=== PATIENT | male | born 1975 | race Caucasian/White ===

== ENCOUNTER 2016-07-27 | Outpatient (CLI) | payer OTHER | END 2016-07-27 19:56 | disposition short-term general hospital (02) | DX: R29.90 Unspecified symptoms and signs involving the nervous system (principal) | CPT/HCPCS: A0170; A0425; A0428 ==

== ENCOUNTER 2016-07-27 | Outpatient (CLI) | payer OTHER | END 2016-07-27 10:04 | disposition critical access hospital (66) | CPT/HCPCS: A0425; A0429 ==

== ENCOUNTER 2016-07-27 10:22 | Emergency (ER) | payer OTHER ==
[2016-07-27] MEDS ORDERED: LORazepam 2 MG/ML SYRINGE IVP STA (14:43)
[2016-07-27] MEDS ORDERED: LORazepam 2 MG/ML SYRINGE ONE (14:46)
[2016-07-27] MEDS ORDERED: levETIRAcetam INJ 1,000 MG in SODIUM CHLORIDE 0.9% 100ML 100 ML IV STA (15:12)
== END 2016-07-27 20:06 | disposition short-term general hospital (02) ==
DX: R41.82 Altered mental status, unspecified (principal)
CPT/HCPCS: 36415; 70450; 70551; 80053; 80306; 80307; 80329; 81003; 82140; 83690; 85025; 93005; 93010; 96374; 96375; 99284; 99285; J2060

== ENCOUNTER 2016-08-18 21:11 | Emergency (ER) | payer OTHER ==
[2016-08-18] MEDS ORDERED: METOCLOPRAMIDE 10 MG/2 ML VIAL IVP STA (21:24)
[2016-08-18] MEDS ORDERED: diphenhydrAMINE INJ 50 MG/ML VIAL IVP STA (21:24)
[2016-08-18] MEDS ORDERED: KETOROLAC 60 MG/2 ML VIAL IVP STA (21:24)
[2016-08-18] MEDS ORDERED: SODIUM CHLORIDE 0.9% 1,000 ML IV ONE ×2 (21:24→21:27)
[2016-08-18] MEDS ORDERED: diphenhydrAMINE INJ 50 MG/ML VIAL ONE (21:26)
[2016-08-18] MEDS ORDERED: KETOROLAC 30 MG/ML VIAL ONE (21:26)
[2016-08-18] MEDS ORDERED: METOCLOPRAMIDE 10 MG/2 ML VIAL IVP ONE (21:27)
== END 2016-08-18 22:23 | disposition home or self-care (01) ==
DX: R51 Headache (principal); G40.89 Other seizures; I10 Essential (primary) hypertension

== ENCOUNTER 2016-08-24 16:01 | Emergency (ER) | payer OTHER ==
[2016-08-24] MEDS ORDERED: LORazepam 2 MG/ML SYRINGE ONE (16:09)
[2016-08-24] MEDS ORDERED: LORazepam 2 MG/ML SYRINGE IVP STA (16:20)
[2016-08-24] MEDS ORDERED: PROCHLORPERAZINE 10 MG/2 ML VIAL IVP STA (16:20)
[2016-08-24] MEDS ORDERED: KETOROLAC 30 MG/ML VIAL IVP STA (16:20)
[2016-08-24] MEDS ORDERED: diphenhydrAMINE INJ 50 MG/ML VIAL IVP STA (16:20)
[2016-08-24] MEDS ORDERED: SODIUM CHLORIDE 0.9% 1,000 ML IV ONE (16:20)
[2016-08-24] MEDS ORDERED: diphenhydrAMINE INJ 50 MG/ML VIAL ONE (16:32)
[2016-08-24] MEDS ORDERED: KETOROLAC 30 MG/ML VIAL ONE (16:33)
[2016-08-24] MEDS ORDERED: PROCHLORPERAZINE 10 MG/2 ML VIAL ONE (16:33)
== END 2016-08-24 18:15 | disposition home or self-care (01) ==
DX: R56.9 Unspecified convulsions (principal); G43.001 Migraine without aura, not intractable, with status migrainosus; I10 Essential (primary) hypertension; G47.30 Sleep apnea, unspecified
CPT/HCPCS: 36415; 80053; 80320; 83690; 85025; 93005; 93010; 96374; 96375; 99284; J2060

== ENCOUNTER 2016-12-05 23:08 | Emergency (ER) | payer OTHER ==
[2016-12-05 23:29] LABS: BILIRUBIN,URINE NEGATIVE (NEGATIVE); PH,URINE 5.5 PH (5.0-7.5)
[2016-12-05 23:31] LABS: UA CHARGE (STRIP ONLY) YES; UR CULTURE IF IND NOT INDICATED
[2016-12-05 23:46] LABS: BASOPHILS # (AUTO) 0.1 10^3/uL (0.0-0.1); BASOPHILS % (AUTO) 1.1 %; EOSINOPHILS # (AUTO) 0.2 10^3/uL (0.0-0.7); EOSINOPHILS % (AUTO) 2.2 %; HCT - HEMATOCRIT 41.3 % (42.0-52.0); HGB - HEMOGLOBIN 14.3 g/dL (14.0-18.0); LYMPHOCYTES # (AUTO) 3.9 10^3/uL (1.5-3.5); LYMPHOCYTES % (AUTO) 55.6 %; MEAN CORPUSCULAR HGB CONC 34.5 g/dL (32.0-36.0); MEAN CORPUSCULAR VOLUME 83.8 fL (80.0-94.0); MEAN PLATELET VOLUME 8.6 fL (7.4-11.4); MONOCYTES # (AUTO) 0.6 10^3/uL (0.0-1.0); MONOCYTES % (AUTO) 8.9 %; NEUTROPHILS # (AUTO) 2.2 10^3/uL (1.5-6.6); NEUTROPHILS % (AUTO) 32.2 %; NUCLEATED RED BLOOD CELLS AUTO 0.2 /100WBC; RED BLOOD COUNT 4.93 10^6/uL (4.70-6.10); RED CELL DISTRIBUTION WIDTH 16.5 % (12.0-15.0); UNCORRECTED WHITE BLOOD COUNT 6.9 x10^3/uL; WHITE BLOOD COUNT 6.9 x10^3/uL (4.8-10.8)
[2016-12-06 00:02] LABS: ALBUMIN/GLOBULIN RATIO 1.6 (1.0-2.2); BILIRUBIN,TOTAL 0.4 mg/dL (0.2-1.0); BUN - BLOOD UREA NITROGEN 21 mg/dL (6-20); CALCIUM 9.4 mg/dL (8.5-10.3); CARBON DIOXIDE - CO2 24 mmol/L (21-32); CHLORIDE 108 mmol/L (101-111); CREATININE 0.9 mg/dL (0.6-1.2); GFR - MDRD 93 (>89); GLUCOSE 118 mg/dL (70-100); LIPASE 26 U/L (22-51); POTASSIUM 4.2 mmol/L (3.5-5.0); SALICYLATE < 6.0 mg/dL; SODIUM 140 mmol/L (135-145); TOTAL PROTEIN 7.1 g/dL (6.7-8.2)
[2016-12-06 00:04] LABS: ACETAMINOPHEN < 10 ug/mL (10-30)
--- NOTE | 2016-12-06 03:25 | ED Physician Documentation ---
PD HPI MHE - Stated complaint Stated Complaint: SI - Chief complaint Chief Complaint: MHE - History obtained from History obtained from: Patient - History of Present Illness Primary symptom: Suicidal ideation Contributing factors: Other (Health issues, affecting work and family relationships.) Similar symptoms before: Diagnosis (Depression; Conversion reaction) - Additional information Additional information: The patient is a 41-year-old [employer] male who presents with vague suicidal ideation. 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 Today he was arguing with his and tried to get away. She blocked the door, and then he grabbed a bottle of pills. His took the pills away and called 911. [place]. He denies being actively suicidal, but states that every day it gets harder to think of a reason why he should go on living. He states he is seeking help before it comes to the point where he tries to take his own life. He denies any active plan at this time. He denies the use of alcohol or other drugs. 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 Review of Systems Constitutional: denies: Fever Ears: denies: Tinnitus/ringing Nose: denies: Congestion Throat: denies: Sore throat Cardiac: denies: Chest pain / pressure Respiratory: denies: Dyspnea, Cough GI: denies: Abdominal Pain, Nausea, Vomiting : denies: Dysuria Skin: denies: Rash Musculoskeletal: denies: Back pain Neurologic: denies: Headache PD PAST MEDICAL HISTORY - Past Medical History Past Medical History: Yes Cardiovascular: Hypertension Respiratory: Sleep apnea, CPAP use Neuro: Tremors Endocrine/Autoimmune: None : Kidney stones Psych: Depression Other Past Medical History: conversion disorder - Past Surgical History Past Surgical History: Yes General: Appendectomy HEENT: Tonsil/Adenoidectomy - Present Medications Home Medications: Ambulatory Orders Medication Instructions Recorded Confirmed Escitalopram Oxalate [Lexapro] 20 mg PO DAILY 11/12/15 12/05/16 Propranolol [Inderal] 10 mg PO BID 08/24/16 12/05/16 Sumatriptan [Imitrex] 25 mg PO BID PRN #10 tablet 08/24/16 12/05/16 Amitriptyline [Elavil] 25 mg ORAL DAILY 12/05/16 12/05/16 - Allergies Allergies/Adverse Reactions: Allergies Allergy/AdvReac Type Severity Reaction Status Date / Time No Known Drug Allergies Allergy Verified 07/27/16 10:24 - Social History Does the pt smoke?: No Smoking Status: Never smoker Does the pt drink ETOH?: No Does the pt have substance abuse?: No - Immunizations Immunizations are current?: Yes - POLST Patient has POLST: No PD ED PE NORMAL - Vitals Vital signs reviewed: Yes (Borderline hypertension initially.) - General General: Alert and oriented X 3, Well developed/nourished - HEENT HEENT: Atraumatic, EOMI, Pharynx benign - Neck Neck: Supple, no meningeal sign, No adenopathy, No JVD - Cardiac Cardiac: RRR, No murmur - Respiratory Respiratory: No respiratory distress, Clear bilaterally - Abdomen Abdomen: Soft, Non tender - Back Back: No CVA TTP - Derm Derm: No rash - Extremities Extremities: No edema, No calf tenderness / cord - Neuro Neuro: Alert and oriented X 3, No motor deficit, No sensory deficit, Normal speech PD ED PE EXPANDED - Psych Psych: Depressed. No: Suicidal, Anxious, Agitated, Delusions Results - Vitals Vitals: Vital Signs - 24 hr 12/06/16 12/06/16 03:51 10:33 Temperature 36.6 C Heart Rate 88 81 Respiratory 18 16 Rate Blood Pressure 130/98 H 139/86 H O2 Saturation 95 98 Oxygen O2 Source Room air - Labs Labs: Laboratory Tests 12/05/16 12/05/16 12/05/16 23:21 23:32 23:32 WBC 6.9 RBC 4.93 Hgb 14.3 Hct 41.3 L MCV 83.8 MCH 29.0 MCHC 34.5 RDW 16.5 H Plt Count 251 MPV 8.6 Neut # 2.2 Lymph # 3.9 H [place] # 0.6 Eos # 0.2 Baso # 0.1 Absolute Nucleated RBC 0.01 Nucleated RBCs 0.2 Sodium 140 Potassium 4.2 Chloride 108 Carbon Dioxide 24 Anion Gap 8.0 BUN 21 H Creatinine 0.9 Estimated GFR (MDRD) 93 Glucose 118 H Calcium 9.4 Total Bilirubin 0.4 AST 41 ALT 84 H Alkaline Phosphatase 85 Total Protein 7.1 Albumin 4.4 Globulin 2.7 Albumin/Globulin Ratio 1.6 Lipase 26 TSH Urine Color YELLOW Urine Clarity CLEAR Urine pH 5.5 Ur Specific [place] 1.025 Urine Protein NEGATIVE Urine Glucose (UA) NEGATIVE Urine Ketones NEGATIVE Urine Occult Blood NEGATIVE Urine Nitrite NEGATIVE Urine Bilirubin NEGATIVE Urine Urobilinogen 1 (NORMAL) Ur Leukocyte Esterase NEGATIVE Ur Microscopic Review NOT INDICATED Urine Culture Comments NOT INDICATED Salicylates < 6.0 Urine Opiates Screen NEGATIVE Ur Oxycodone Screen NEGATIVE Urine Methadone Screen NEGATIVE Ur Propoxyphene Screen NEGATIVE Acetaminophen < 10 L Ur Barbiturates Screen NEGATIVE Ur Tricyclics Screen NEGATIVE Ur Phencyclidine Scrn NEGATIVE Ur Amphetamine Screen NEGATIVE U Methamphetamines Scrn NEGATIVE U Benzodiazepines Scrn NEGATIVE Urine Cocaine Screen NEGATIVE U Cannabinoids Screen NEGATIVE Ethyl Alcohol < 5.0 12/05/16 23:32 WBC RBC Hgb Hct MCV MCH MCHC RDW Plt Count MPV Neut # Lymph # [place] # Eos # Baso # Absolute Nucleated RBC Nucleated RBCs Sodium Potassium Chloride Carbon Dioxide Anion Gap BUN Creatinine Estimated GFR (MDRD) Glucose Calcium Total Bilirubin AST ALT Alkaline Phosphatase Total Protein Albumin Globulin Albumin/Globulin Ratio Lipase TSH 1.25 Urine Color Urine Clarity Urine pH Ur Specific [place] Urine Protein Urine Glucose (UA) Urine Ketones Urine Occult Blood Urine Nitrite Urine Bilirubin Urine Urobilinogen Ur Leukocyte Esterase Ur Microscopic Review Urine Culture Comments Salicylates Urine Opiates Screen Ur Oxycodone Screen Urine Methadone Screen Ur Propoxyphene Screen Acetaminophen Ur Barbiturates Screen Ur Tricyclics Screen Ur Phencyclidine Scrn Ur Amphetamine Screen U Methamphetamines Scrn U Benzodiazepines Scrn Urine Cocaine Screen U Cannabinoids Screen Ethyl Alcohol PD MEDICAL DECISION MAKING - ED course Complexity details: reviewed old records, reviewed results, re-evaluated patient , considered differential, d/w patient, d/w family ED course: The patient's presentation is significant for depression with vague thoughts of suicide, without specific plan. He reports significant stressors involving inability to work at his job and troubled relations with his as a result of medical/psychiatric illness. CBC, chemistry panel, and urinalysis are all unremarkable. Tox screen is negative. crisis worker is not available for consult at night, and the patient does not meet criteria for involuntary psychiatric hold, so does not [facility] He will stay in the emergency department through the night until medical director occupational health is available in the morning. At change of shift I signed his care out to Dr. Dowling, pending evaluation by the medical director occupational health. Departure - Departure Disposition: 65 Psych Hosp/Unit DC/Xfer Clinical Impression: Suicidal ideation Depression Qualifiers: Depression Type: unspecified Qualified Code(s): F32.9 - Major depressive disorder, single episode, unspecified Discharge Date/Time: 12/06/16 10:48
[2016-12-06 10:34] VITALS: BP 139/86
== END 2016-12-06 10:48 ==
LOC: ED 23:08
DX: F32.9 Major depressive disorder, single episode, unspecified (principal); R45.851 Suicidal ideations; I10 Essential (primary) hypertension; G47.30 Sleep apnea, unspecified
CPT/HCPCS: 36415; 80053; 80306; 80307; 80320; 80329; 81001; 81003; 83690; 84443; 85025; 87086; 99283; 99284

== ENCOUNTER 2017-01-01 21:26 | Emergency (ER) | payer OTHER ==
[2017-01-01 21:42] LABS: BILIRUBIN,URINE NEGATIVE (NEGATIVE)
[2017-01-01 21:45] LABS: UA w/ MICROSCOPIC CHARGE YES
[2017-01-01 21:50] LABS: UR CULTURE IF IND NOT INDICATED; WBC,URINE 0-3 /HPF (0-3)
--- NOTE | 2017-01-01 21:54 | ED Physician Documentation ---
PD HPI ABD PAIN - Stated complaint Stated Complaint: ABD PAIN - Chief complaint Chief Complaint: Abd Pain - History obtained from History obtained from: Patient - History of Present Illness Timing - onset: How many weeks ago (3) Timing - duration: Weeks Timing - details: Abrupt onset, Intermittant Pain level max: 10 Pain level now: 10 Quality: Pain Location: Other (right testicle) Radiation: Right flank Improved by: Other (no ameliorating factors) Worsened by: Other (no exacerbating factors) Associated symptoms: Testicular pain. No: Fever, Nausea, Vomiting, Dysuria, Hematuria Similar symptoms before: Has not had sx before Recently seen: Not recently seen - Additional information Additional information: c/o right testicular pain, which he has had in the past in association with kidney stones. He has had this pain episodically x 3 weeks, recently seen by PMD (OLIVER), told he might have epididimytis, prescribed a topical medication. Review of Systems Constitutional: denies: Fever GI: denies: Abdominal Pain, Nausea, Vomiting : reports: Testicular pain. denies: Dysuria, Frequency, Hematuria Musculoskeletal: reports: Back pain PD PAST MEDICAL HISTORY - Past Medical History Past Medical History: Yes Cardiovascular: Hypertension Respiratory: Sleep apnea, CPAP use Neuro: Tremors Endocrine/Autoimmune: None : Kidney stones Psych: Depression, Other Other Past Medical History: conversion disorder - Past Surgical History Past Surgical History: Yes General: Appendectomy HEENT: Tonsil/Adenoidectomy - Present Medications Home Medications: Ambulatory Orders Medication Instructions Recorded Confirmed Escitalopram Oxalate [Lexapro] 20 mg PO DAILY 11/12/15 12/05/16 Propranolol [Inderal] 10 mg PO BID 08/24/16 12/05/16 Sumatriptan [Imitrex] 25 mg PO BID PRN #10 tablet 08/24/16 12/05/16 Amitriptyline [Elavil] 25 mg ORAL DAILY 12/05/16 12/05/16 Tamsulosin [Flomax] 0.4 mg PO DAILY #7 capsule 01/01/17 oxyCODONE/ACET 5/325 [Percocet 5 1 - 2 each PO Q6H PRN #14 tablet 01/01/17 mg/325 mg] - Allergies Allergies/Adverse Reactions: Allergies Allergy/AdvReac Type Severity Reaction Status Date / Time No Known Drug Allergies Allergy Verified 07/27/16 10:24 - Social History Does the pt smoke?: No Smoking Status: Never smoker Does the pt drink ETOH?: No Does the pt have substance abuse?: No - Immunizations Immunizations are current?: Yes - POLST Patient has POLST: No PD ED PE NORMAL - Vitals Vital signs reviewed: Yes - General General: Alert and oriented X 3, No acute distress, Well developed/nourished - Cardiac Cardiac: RRR, No murmur - Respiratory Respiratory: No respiratory distress, Clear bilaterally - Abdomen Abdomen: Normal bowel sounds, Soft, Non tender, Non distended - Back Back: No CVA TTP - Derm Derm: Normal color, Warm and dry, No rash PD ED PE EXPANDED - Male Male : Normal Exam, Circumcised, Testes descended delaney, Normal lie/ cremastaric. No: Discharge, Tenderness Results - Vitals Vitals: Vital Signs - 24 hr 01/01/17 01/01/17 21:28 23:29 Temperature 36.7 C Heart Rate 75 65 Respiratory 18 16 Rate Blood Pressure 129/82 H 133/80 H O2 Saturation 98 100 Oxygen O2 Source Room air - Labs Labs: Laboratory Tests 01/01/17 01/01/17 01/01/17 21:35 21:53 21:53 WBC 6.6 RBC 4.63 L Hgb 13.0 L Hct 39.1 L MCV 84.4 MCH 28.1 MCHC 33.3 RDW 15.3 H Plt Count 234 MPV 9.1 Neut # 2.8 Lymph # 2.9 [place] # 0.7 Eos # 0.2 Baso # 0.0 Absolute Nucleated RBC 0.01 Nucleated RBCs 0.1 Sodium 140 Potassium 3.6 Chloride 108 Carbon Dioxide 25 Anion Gap 7.0 BUN 20 Creatinine 0.9 Estimated GFR (MDRD) 93 Glucose 119 H Calcium 9.1 Urine Color YELLOW Urine Clarity CLEAR Urine pH 6.0 Ur Specific [place] >=1.030 H Urine Protein NEGATIVE Urine Glucose (UA) NEGATIVE Urine Ketones TRACE Urine Occult Blood MODERATE H Urine Nitrite NEGATIVE Urine Bilirubin NEGATIVE Urine Urobilinogen 0.2 (NORMAL) Ur Leukocyte Esterase NEGATIVE Urine RBC 11-25 H Urine WBC 0-3 Ur Squamous Epith Cells NONE SEEN Urine Bacteria None Seen Urine Mucus Moderate Strands Ur Microscopic Review INDICATED Urine Culture Comments NOT INDICATED - Rads (name of study) CT A/P Radiology: Prelim report reviewed, See rad report PD MEDICAL DECISION MAKING - ED course Complexity details: reviewed old records, reviewed results, re-evaluated patient , considered differential, d/w patient Departure - Departure Disposition: 01 Home, Self Care Clinical Impression: Renal colic Condition: Good Instructions: ED Stone Renal W Colic Follow-Up: Mamadou Corral DO [Primary Care Provider] - Prescriptions: Tamsulosin [Flomax] 0.4 mg PO DAILY #7 capsule oxyCODONE/ACET 5/325 [Percocet 5 mg/325 mg] 1 - 2 each PO Q6H PRN #14 tablet PRN Reason: Pain Discharge Date/Time: 01/01/17 23:35
[2017-01-01] MEDS ORDERED: SODIUM CHLORIDE 0.9% 500 ML IV STA (22:11)
[2017-01-01] MEDS ORDERED: KETOROLAC 60 MG/2 ML VIAL IVP STA (22:11)
[2017-01-01] MEDS ORDERED: KETOROLAC 30 MG/ML VIAL ONE (22:14)
[2017-01-01 22:18] LABS: BASOPHILS % (AUTO) 0.8 %; EOSINOPHILS # (AUTO) 0.2 10^3/uL (0.0-0.7); EOSINOPHILS % (AUTO) 2.5 %; HCT - HEMATOCRIT 39.1 % (42.0-52.0); LYMPHOCYTES # (AUTO) 2.9 10^3/uL (1.5-3.5); LYMPHOCYTES % (AUTO) 43.4 %; MEAN CORPUSCULAR HEMOGLOBIN 28.1 pg (27.0-31.0); MEAN CORPUSCULAR HGB CONC 33.3 g/dL (32.0-36.0); MEAN CORPUSCULAR VOLUME 84.4 fL (80.0-94.0); MEAN PLATELET VOLUME 9.1 fL (7.4-11.4); MONOCYTES # (AUTO) 0.7 10^3/uL (0.0-1.0); MONOCYTES % (AUTO) 10.6 %; NEUTROPHILS # (AUTO) 2.8 10^3/uL (1.5-6.6); NEUTROPHILS % (AUTO) 42.7 %; NUCLEATED RED BLOOD CELLS AUTO 0.1 /100WBC; RED BLOOD COUNT 4.63 10^6/uL (4.70-6.10); RED CELL DISTRIBUTION WIDTH 15.3 % (12.0-15.0); UNCORRECTED WHITE BLOOD COUNT 6.6 x10^3/uL; WHITE BLOOD COUNT 6.6 x10^3/uL (4.8-10.8)
[2017-01-01 22:24] LABS: CALCIUM 9.1 mg/dL (8.5-10.3); CREATININE 0.9 mg/dL (0.6-1.2); POTASSIUM 3.6 mmol/L (3.5-5.0)
--- NOTE | 2017-01-01 22:48 | CT Preliminary Report ---
Exam: CT Abdomen/Pelvis W/O IMPRESSION: 1. There is mild right hydronephrosis and right hydroureter with mild adjacent stranding. This is roxy ng caused by a right ureterovesicular junction calculus measuring 5 x 4 mm. 2. A few small bilateral nonobstructing renal calculi. 3. Chronic bilateral L5 pars defects with minimal anterolisthesis of L5-S1, appears unchanged. [facility] SITE ID: [id number]
--- NOTE | 2017-01-01 22:51 | CT Report ---
EXAM: CT ABDOMEN AND PELVIS (CT KUB) EXAM DATE: 01/01/2017 10:27 PM. CLINICAL HISTORY: Right flank, testicle pain. COMPARISONS: CT abdomen pelvis 09/30/2015. TECHNIQUE: Routine axial helical CT imaging was performed through the abdomen and pelvis without IV c ontrast. Reconstructions: Coronal and sagittal. In accordance with CT protocol optimization, one or more of the following dose reduction techniques w ere utilized for this exam: automated exposure control, adjustment of mA and/or KV based on patient s ize, or use of iterative reconstructive technique. FINDINGS: Lung Bases: Unremarkable. Solid Organs: Mild fatty liver. Contracted gallbladder. No bile duct dilatation. The pancreas, splee n and adrenals appear unremarkable. Kidneys: Right lower pole renal calculus measures 3 mm and this was present on the prior. There is mi ld right hydronephrosis and right hydroureter with mild adjacent stranding. This is being caused by a right ureterovesicular junction calculus measuring 5 x 4 mm. A few 2-3 mm calculi seen in the left kidney. No left hydronephrosis. Peritoneal Cavity: Surgical clips in the right lower quadrant could be status post appendectomy. No a cute bowel findings are seen. No free fluid or free air. There is a large amount of fluid and debris in the stomach. Pelvic Organs: See above. The bladder is decompressed. Noncontrast images of the visualized pelvic or genaro are unremarkable. Vasculature: Unremarkable. Other: Chronic bilateral L5 pars defects with minimal anterolisthesis of L5-S1, appears unchanged. IMPRESSION: 1. There is mild right hydronephrosis and right hydroureter with mild adjacent stranding. This is roxy ng caused by a right ureterovesicular junction calculus measuring 5 x 4 mm. 2. A few small bilateral nonobstructing renal calculi. 3. Chronic bilateral L5 pars defects with minimal anterolisthesis of L5-S1, appears unchanged. [facility] Referring Provider Line: [phone] SITE ID: [id number]
[2017-01-01] MEDS ORDERED: TAMSULOSIN 0.4 MG CAPSULE PO STA (23:18)
[2017-01-01] MEDS ORDERED: oxyCODONE/ACET 5/325 Prepack 4 PO STA (23:18)
[2017-01-01] MEDS ORDERED: oxyCODONE/ACET 5/325 Prepack 4 PO ONE (23:26)
[2017-01-01] MEDS ORDERED: TAMSULOSIN 0.4 MG CAPSULE ONE (23:26)
[2017-01-01 23:30] VITALS: BP 133/80
== END 2017-01-01 23:35 | disposition home or self-care (01) ==
LOC: ED 21:26
DX: N13.2 Hydronephrosis with renal and ureteral calculous obstruction (principal); I10 Essential (primary) hypertension
CPT/HCPCS: 36415; 74176; 80048; 81001; 85025; 96374; 99283; 99284; A9270; 81003; 87086

== ENCOUNTER 2017-05-30 13:58 | Emergency (ER) | payer OTHER ==
--- NOTE | 2017-05-30 16:19 | ED Physician Documentation ---
PD HPI FOCAL NEURO - Stated complaint Stated Complaint: BILAT HAND NUMBNESS - Chief complaint Chief Complaint: General - History obtained from History obtained from: Patient - History of Present Illness Timing - onset: Other (He recently had a broken carpal in the left hand that was managed conservatively with casting. The cast came off a few weeks ago. Starting about that time he had migratory pains especially to the medial elbow and up into the axilla. The axillary pain is gone but today had numbness of the fingertips, he says it is worse on the thumb side but points to the pinky side as the site of it.) Review of Systems Constitutional: denies: Fever, Chills, Myalgias Musculoskeletal: denies: Neck pain, Back pain Neurologic: reports: Generalized weakness Psychiatric: reports: Reviewed and negative PD PAST MEDICAL HISTORY - Past Medical History Past Medical History: Yes Cardiovascular: Hypertension Respiratory: Sleep apnea, CPAP use Neuro: Tremors Endocrine/Autoimmune: None : Kidney stones Psych: Depression, Anxiety, Other - Past Surgical History Past Surgical History: Yes General: Appendectomy HEENT: Tonsil/Adenoidectomy - Present Medications Home Medications: Ambulatory Orders Medication Instructions Recorded Confirmed Atenolol 50 mg PO DAILY 05/30/17 05/30/17 Duloxetine HCl [Cymbalta] 60 mg BID 05/30/17 05/30/17 Pantoprazole [Protonix] 60 mg PO DAILY 05/30/17 05/30/17 traZODone [Desyrel] 50 mg QPM 05/30/17 05/30/17 - Allergies Allergies/Adverse Reactions: Allergies Allergy/AdvReac Type Severity Reaction Status Date / Time No Known Drug Allergies Allergy Verified 05/30/17 14:12 - Social History Does the pt smoke?: No Smoking Status: Never smoker Does the pt drink ETOH?: No Does the pt have substance abuse?: No - Immunizations Immunizations are current?: Yes - POLST Patient has POLST: No PD ED PE NORMAL - Vitals Vital signs reviewed: Yes - General General: Alert and oriented X 3, No acute distress - Extremities Extremities: Other (No tenderness of the elbow, axilla, or wrist. 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 He has good radial pulses. He has symmetric sensation throughout the hand and a negative Tinel's and Phalen sign.) - Neuro Neuro: Alert and oriented X 3, Normal speech - Psych Psych: Normal mood, Normal affect Results - Vitals Vitals: Vital Signs - 24 hr 05/30/17 14:07 Temperature 36 C L Heart Rate 71 Respiratory 18 Rate Blood Pressure 140/91 H O2 Saturation 98 Oxygen O2 Source Room air PD MEDICAL DECISION MAKING - ED course ED course: History and physical examination is not consistent with an emergency medical condition including CVA. This is most consistent with probably an ulnar nerve neuropathy from previous casting. Not c/w Carpal tunnel syndrome. Primary care follow-up was advised. Departure - Departure Disposition: 01 Home, Self Care Clinical Impression: Ulnar neuropathy at elbow of left upper extremity Condition: Good Record reviewed to determine appropriate education?: Yes Comments: This is most consistent with an ulnar nerve neuropathy probably from prior casting, but this can happen spontaneously as well. Follow-up with your doctor , if it does not resolve in the spine in a timely manner they may want to order further testing on you such as EMG/nerve conduction testing. Your blood pressure was elevated today on check into the emergency department. This does not mean that you have hypertension, it is a common phenomenon to come to the emergency department and have elevated blood pressure. I recommend that you see your primary care physician within the week to have it rechecked when you are feeling better.
[2017-05-30 16:44] VITALS: BP 130/82
== END 2017-05-30 16:38 | disposition home or self-care (01) ==
LOC: ED 13:58
DX: G56.22 Lesion of ulnar nerve, left upper limb (principal); I10 Essential (primary) hypertension
CPT/HCPCS: 99282; 99283

== ENCOUNTER 2017-09-28 16:33 | Emergency (ER) | payer OTHER ==
[2017-09-28] MEDS ORDERED: LORazepam 0.5 MG TABLET PO STA (18:22)
--- NOTE | 2017-09-28 18:24 | ED Physician Documentation ---
History of Present Illness - Stated complaint Stated Complaint: FAINTED - Chief complaint Chief Complaint: General - History obtained from History obtained from: Patient, Family () - History of Present Illness Timing: Today (42-year-old gentleman with history of anxiety, conversion disorder and pseudoseizures. He was at home tending to his goats, laying out the [place] he was rotating and started to feel like he was motion sick and got nauseous. This kind of set off what I think sounded like a panic attack where he started stuttering and had to sit on the ground and not move for about 15 minutes. At baseline he does not stutter, only when he is having anxiety and he is stuttering now this is similar to prior episodes of pseudoseizure.) Review of Systems Constitutional: denies: Fever, Chills Eyes: denies: Loss of vision, Decreased vision, Photophobia, Discharge, Irritation Ears: denies: Loss of hearing, Ear pain Nose: reports: Reviewed and negative Throat: reports: Reviewed and negative Cardiac: reports: Reviewed and negative PD PAST MEDICAL HISTORY - Past Medical History Cardiovascular: Hypertension Respiratory: Sleep apnea, CPAP use Neuro: Tremors Endocrine/Autoimmune: None : Kidney stones Psych: Depression, Anxiety, Other - Past Surgical History Past Surgical History: Yes General: Appendectomy HEENT: Tonsil/Adenoidectomy - Present Medications Home Medications: Ambulatory Orders Medication Instructions Recorded Confirmed Atenolol 50 mg PO DAILY 05/30/17 05/30/17 Duloxetine HCl [Cymbalta] 60 mg BID 05/30/17 05/30/17 Pantoprazole [Protonix] 60 mg PO DAILY 05/30/17 05/30/17 traZODone [Desyrel] 50 mg QPM 05/30/17 05/30/17 - Allergies Allergies/Adverse Reactions: Allergies Allergy/AdvReac Type Severity Reaction Status Date / Time No Known Drug Allergies Allergy Verified 09/28/17 16:58 - Social History Does the pt smoke?: No Smoking Status: Never smoker Does the pt drink ETOH?: No Does the pt have substance abuse?: No - Immunizations Immunizations are current?: Yes - POLST Patient has POLST: No PD ED PE NORMAL - Vitals Vital signs reviewed: Yes - General General: Alert and oriented X 3, Well developed/nourished, Other (Stuttering speech, poor eye contact) - HEENT HEENT: PERRL, EOMI, Pharynx benign - Neck Neck: Supple, no meningeal sign, No bony TTP - Cardiac Cardiac: RRR, No murmur - Respiratory Respiratory: No respiratory distress, Clear bilaterally - Neuro Neuro: Alert and oriented X 3, heel builder 2-12 intact Eye Opening: Spontaneous Motor: Obeys Commands Verbal: Oriented GCS Score: 15 Results - Vitals Vitals: Vital Signs - 24 hr 09/28/17 09/28/17 16:48 19:33 Temperature 37.1 C 36.0 C L Heart Rate 71 64 Respiratory 17 16 Rate Blood Pressure 118/85 H 120/81 H O2 Saturation 97 98 Oxygen O2 Source Room air - EKG (time done) 1643 Rate: Rate (enter#) (67) Rhythm: NSR [place]: Normal Intervals: Normal [place] QRS: Normal Ischemia: Normal ST segments Computer interpretation: Agree with computer - Labs Labs: Laboratory Tests 09/28/17 09/28/17 18:31 18:31 WBC 7.3 RBC 4.89 Hgb 13.1 L Hct 39.6 L MCV 81.0 MCH 26.7 L MCHC 33.0 RDW 14.9 Plt Count 261 MPV 7.8 Neut # 4.3 Lymph # 2.3 [place] # 0.5 Eos # 0.1 Baso # 0.1 Absolute Nucleated RBC 0.01 Nucleated RBC % 0.1 Sodium 136 Potassium 3.9 Chloride 102 Carbon Dioxide 29 Anion Gap 5.0 L BUN 16 Creatinine 0.7 Estimated GFR (MDRD) 124 Glucose 103 H Calcium 9.2 Total Bilirubin 0.6 AST 26 ALT 30 Alkaline Phosphatase 76 Total Protein 7.4 Albumin 4.6 Globulin 2.8 Albumin/Globulin Ratio 1.6 Lipase 21 L - Rads (name of study) Ct Head Radiology: EMP read contemporaneously (NAD) PD MEDICAL DECISION MAKING - ED course ED course: It seems like he probably had an episode of peripheral vertigo that started while rotating and then that caused him to have a panic episode with some conversion symptoms. After the administration of 1 mg of Ativan orally his stuttering was all gone and his eye contact was much better. Departure - Departure Disposition: 01 Home, Self Care Clinical Impression: Vertigo, Panic attack Condition: Good Record reviewed to determine appropriate education?: Yes Instructions: ED Panic Attack Comments: Call your doctor to arrange a follow-up appointment, make the next available appointment. In the interim, return anytime if worse or if new symptoms develop. Discharge Date/Time: 09/28/17 19:33
[2017-09-28 18:36] LABS: BASOPHILS # (AUTO) 0.1 10^3/uL (0.0-0.1); BASOPHILS % (AUTO) 1.2 %; EOSINOPHILS # (AUTO) 0.1 10^3/uL (0.0-0.7); EOSINOPHILS % (AUTO) 1.1 %; HGB - HEMOGLOBIN 13.1 g/dL (14.0-18.0); LYMPHOCYTES # (AUTO) 2.3 10^3/uL (1.5-3.5); LYMPHOCYTES % (AUTO) 31.9 %; MEAN CORPUSCULAR HEMOGLOBIN 26.7 pg (27.0-31.0); MEAN PLATELET VOLUME 7.8 fL (7.4-11.4); MONOCYTES # (AUTO) 0.5 10^3/uL (0.0-1.0); MONOCYTES % (AUTO) 6.8 %; NEUTROPHILS # (AUTO) 4.3 10^3/uL (1.5-6.6); PLT - PLATELET COUNT 261 10^3/uL (130-450); RED BLOOD COUNT 4.89 10^6/uL (4.70-6.10); RED CELL DISTRIBUTION WIDTH 14.9 % (12.0-15.0); WHITE BLOOD COUNT 7.3 x10^3/uL (4.8-10.8)
[2017-09-28 18:49] LABS: ALBUMIN 4.6 g/dL (3.2-5.5); ALBUMIN/GLOBULIN RATIO 1.6 (1.0-2.2); BILIRUBIN,TOTAL 0.6 mg/dL (0.2-1.0); CALCIUM 9.2 mg/dL (8.5-10.3); CREATININE 0.7 mg/dL (0.6-1.2); TOTAL PROTEIN 7.4 g/dL (6.7-8.2)
--- NOTE | 2017-09-28 19:14 | CT Report ---
EXAM: CT HEAD EXAM DATE: 09/28/2017 06:46 PM. CLINICAL HISTORY: Dizziness, nausea. COMPARISON: CT head and MRI brain 07/27/2016. TECHNIQUE: Multiaxial CT images were obtained from the foramen magnum to the vertex. Reformats: Coron al. IV contrast: None. In accordance with CT protocol optimization, one or more of the following dose reduction techniques w ere utilized for this exam: automated exposure control, adjustment of mA and/or KV based on patient s ize, or use of iterative reconstructive technique. 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 No other low or high-density lesions. No mass effect. Saldana-white differentiation otherwise is intact. Extraaxial Spaces: Normal for age. No subdural or epidural collections identified. Ventricles: Normal in size and position. Sinuses and Orbits: Imaged paranasal sinuses, orbits, and mastoids show no significant abnormality. Bones: No evidence of fracture or calvarial defect. Other: None. IMPRESSION: 1. 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 2. Otherwise normal head CT. [facility] Referring Provider Line: [phone] SITE ID: [id number]
--- NOTE | 2017-09-28 19:14 | CT Preliminary Report ---
Exam: CT HEAD W/O IMPRESSION: 1. 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 2. Otherwise normal head CT. [facility] SITE ID: [id number]
[2017-09-28 19:33] VITALS: BP 120/81
== END 2017-09-28 19:33 | disposition home or self-care (01) ==
LOC: ED 16:33
DX: R42 Dizziness and giddiness (principal); F41.0 Panic disorder [episodic paroxysmal anxiety]; F44.4 Conversion disorder with motor symptom or deficit; I10 Essential (primary) hypertension; G47.30 Sleep apnea, unspecified; Z87.442 Personal history of urinary calculi
CPT/HCPCS: 36415; 70450; 80053; 83690; 85025; 93005; 99283; A9270

== ENCOUNTER 2018-10-14 21:30 | Outpatient (CLI) | payer OTHER | END 2018-10-14 21:31 | disposition critical access hospital (66) | LOC: EMS 21:30 | PROVIDERS: ATTEND Surgery | DX: R07.89 Other chest pain (principal); R46.4 Slowness and poor responsiveness; F41.9 Anxiety disorder, unspecified | CPT/HCPCS: A0425; A0429 ==

== ENCOUNTER 2018-10-14 22:21 | Emergency (ER) | payer OTHER ==
--- NOTE | 2018-10-14 22:44 | ED Physician Documentation ---
PD HPI CHEST PAIN - Stated complaint Stated Complaint: CHEST PRESSURE - Chief complaint Chief Complaint: Cardiac - History obtained from History obtained from: Patient, EMS - History of Present Illness Timing - onset: Enter time (2099), Today Timing - onset during: Rest Timing - duration: Minutes (45) Timing - details: Abrupt onset, Now resolved Quality: Pressure Location: Substernal, Left chest Radiation: No: Jaw, Neck, Back Improved by: Nothing Worsened by: Other (nothing) Associated symptoms: Cough. No: Shortness of air, Diaphoresis, Nausea, Vomiting, Feeling faint / dizzy, General Weakness, Palpitations Similar symptoms before: Diagnosis (anxiety) Recently seen: Other - Additional information Additional information: 43-year-old male with a history of anxiety and depression is getting ECT therapy done down at [facility] for treatment resistant depression and anxiety. He has had 4 treatments and on his last treatment 5 days ago he developed atrial fibrillation and they have suspended his treatments until his follow-up with a glove printer in 2 days. The patient was sitting on his couch at home watching television when he developed some pressure in his left chest and he called the ambulance. He denies any palpitations associated with this and shortness of alisa ath any radiation of the pain. He does have some anxiety and also noted that his speech was slurred at the time. He does get slurred speech periodically with his anxiety. He also will get quiet speech and poor eye contact. Review of Systems Constitutional: denies: Fever Eyes: denies: Decreased vision Ears: denies: Ear pain Nose: denies: Rhinorrhea / runny nose, Congestion Throat: denies: Sore throat Cardiac: reports: Chest pain / pressure. denies: Palpitations Respiratory: reports: Cough (sporadic and intermittant). denies: Dyspnea GI: denies: Abdominal Pain, Nausea, Vomiting : denies: Dysuria, Frequency Skin: denies: Rash Musculoskeletal: denies: Neck pain, Back pain, Extremity pain Neurologic: reports: Difficulty speaking. denies: Generalized weakness, Focal weakness, Numbness Psychiatric: reports: Depressed, Anxiety PD PAST MEDICAL HISTORY - Past Medical History Past Medical History: Yes Cardiovascular: Hypertension, Atrial fibrillation, Other Respiratory: Sleep apnea, CPAP use Neuro: None Endocrine/Autoimmune: None GI: None : Kidney stones HEENT: None Psych: Depression, Anxiety, Other Musculoskeletal: None Derm: None Other Past Medical History: cardioversion - Past Surgical History Past Surgical History: Yes General: Appendectomy HEENT: Tonsil/Adenoidectomy - Present Medications Home Medications: Ambulatory Orders Medication Instructions Recorded Confirmed Atenolol 50 mg PO DAILY 05/30/17 05/30/17 Duloxetine HCl [Cymbalta] 60 mg BID 05/30/17 05/30/17 Pantoprazole [Protonix] 60 mg PO DAILY 05/30/17 05/30/17 traZODone [Desyrel] 50 mg QPM 05/30/17 05/30/17 - Allergies Allergies/Adverse Reactions: Allergies Allergy/AdvReac Type Severity Reaction Status Date / Time No Known Drug Allergies Allergy Verified 10/14/18 22:33 - Social History Does the pt smoke?: No Smoking Status: Never smoker Does the pt drink ETOH?: No Does the pt have substance abuse?: No - Immunizations Immunizations are current?: Yes - POLST Patient has POLST: No PD ED PE NORMAL - Vitals Vital signs reviewed: Yes (hypertensive diastolic ) - General General: Alert and oriented X 3, No acute distress, Well developed/nourished, Other (speaks quietly and has poor eye contact has blunted affect) - HEENT HEENT: Atraumatic, PERRL, EOMI, Other (The left TM is erythematous along the umbo with rounding of the umbo ) - Neck Neck: Supple, no meningeal sign, No bony TTP - Cardiac Cardiac: RRR, No murmur, No gallop, No rub - Respiratory Respiratory: No respiratory distress, Clear bilaterally - Abdomen Abdomen: Soft, Non tender - Back Back: No CVA TTP, No spinal TTP - Derm Derm: Normal color, Warm and dry, No rash - Extremities Extremities: No deformity, No edema - Neuro Neuro: Alert and oriented X 3, shank maker 2-12 intact, No motor deficit, No sensory deficit, Other (low volume speech ) Eye Opening: Spontaneous Motor: Obeys Commands Verbal: Oriented GCS Score: 15 - Psych Psych: Other (mood is withdrawn and the affect is flat. ) Results - Vitals Vitals: Vital Signs - 24 hr 10/14/18 10/14/18 10/15/18 22:28 23:06 00:11 Temperature 36.9 C Heart Rate 79 68 74 Respiratory 18 16 18 Rate Blood Pressure 124/93 H 120/81 H 125/90 H O2 Saturation 96 98 96 10/15/18 01:08 Temperature Heart Rate 72 Respiratory 16 Rate Blood Pressure 111/83 H O2 Saturation 99 Oxygen O2 Source Room air - EKG (time done) 2227 Rate: Rate (enter#) (80) Rhythm: NSR Ischemia: Normal ST segments Compare to prior EKG: Unchanged from prior EKG (SPT 08-23-16 no change) Computer interpretation: Agree with computer - Labs Labs: Laboratory Tests 10/14/18 10/14/18 10/14/18 23:05 23:05 23:05 WBC 9.1 RBC 5.02 Hgb 14.5 Hct 42.9 MCV 85.5 MCH 28.9 MCHC 33.7 RDW 15.1 H Plt Count 281 MPV 8.0 Neut # (Auto) 4.8 Lymph # (Auto) 3.4 [place] # (Auto) 0.6 Eos # (Auto) 0.2 Baso # (Auto) 0.0 Absolute Nucleated RBC 0.00 Nucleated RBC % 0.0 Sodium 137 Potassium 3.6 Chloride 101 Carbon Dioxide 24 Anion Gap 12.0 BUN 19 Creatinine 0.8 Estimated GFR (MDRD) 106 Glucose 149 H Calcium 9.1 Total Bilirubin 0.5 AST 32 ALT 41 Alkaline Phosphatase 98 Troponin I < 0.04 Total Protein 7.3 Albumin 4.4 Globulin 2.9 Albumin/Globulin Ratio 1.5 Lipase 24 10/15/18 00:35 WBC RBC Hgb Hct MCV MCH MCHC RDW Plt Count MPV Neut # (Auto) Lymph # (Auto) [place] # (Auto) Eos # (Auto) Baso # (Auto) Absolute Nucleated RBC Nucleated RBC % Sodium Potassium Chloride Carbon Dioxide Anion Gap BUN Creatinine Estimated GFR (MDRD) Glucose Calcium Total Bilirubin AST ALT Alkaline Phosphatase Troponin I < 0.04 Total Protein Albumin Globulin Albumin/Globulin Ratio Lipase - Rads (name of study) chest 2 veiw Radiology: Prelim report reviewed (Impression: 1. No acute abnormality seen in the chest.), EMP read indepedently, See rad report PD MEDICAL DECISION MAKING - ED course Complexity details: reviewed old records, reviewed results, re-evaluated patient, considered differential, d/w patient ED course: 43-year-old male with treatment resistant anxiety and depression has developed some left-sided chest pain pressure this evening while at rest. He has had resolution of his symptoms this does appear to be related to anxiety. He has had 2- troponins letter cardiogram is unchanged from prior. He does have follow-up with cardiology in 2 days time. Departure - Departure Disposition: 01 Home, Self Care Clinical Impression: Atypical chest pain, Anxiety Condition: Stable Instructions: ED Panic Attack, ED Chest Pain Atypical Unkn Cause Follow-Up: OLIVER Mclean [Provider Group]
[2018-10-14] MEDS ORDERED: LORazepam 2 MG/ML VIAL IVP STA (22:57)
[2018-10-14 23:09] LABS: BASOPHILS % (AUTO) 0.4 %; EOSINOPHILS # (AUTO) 0.2 10^3/uL (0.0-0.7); EOSINOPHILS % (AUTO) 2.2 %; HGB - HEMOGLOBIN 14.5 g/dL (14.0-18.0); LYMPHOCYTES # (AUTO) 3.4 10^3/uL (1.5-3.5); LYMPHOCYTES % (AUTO) 37.6 %; MEAN CORPUSCULAR HEMOGLOBIN 28.9 pg (27.0-31.0); MEAN CORPUSCULAR HGB CONC 33.7 g/dL (32.0-36.0); MEAN CORPUSCULAR VOLUME 85.5 fL (80.0-94.0); MONOCYTES # (AUTO) 0.6 10^3/uL (0.0-1.0); MONOCYTES % (AUTO) 6.9 %; NEUTROPHILS # (AUTO) 4.8 10^3/uL (1.5-6.6); NEUTROPHILS % (AUTO) 52.9 %; PLT - PLATELET COUNT 281 10^3/uL (130-450); RED BLOOD COUNT 5.02 10^6/uL (4.70-6.10); RED CELL DISTRIBUTION WIDTH 15.1 % (12.0-15.0); WHITE BLOOD COUNT 9.1 x10^3/uL (4.8-10.8)
[2018-10-14 23:22] LABS: ALBUMIN 4.4 g/dL (3.2-5.5); ALBUMIN/GLOBULIN RATIO 1.5 (1.0-2.2); BILIRUBIN,TOTAL 0.5 mg/dL (0.2-1.0); CALCIUM 9.1 mg/dL (8.5-10.3); CREATININE 0.8 mg/dL (0.6-1.2); TOTAL PROTEIN 7.3 g/dL (6.7-8.2)
--- NOTE | 2018-10-14 23:35 | XRAY Report ---
Reason: chest pain Procedure Date: 10/14/2018 Accession Number: [id number] / [id number] Procedure: XR - Chest 2 View X-Ray CPT Code: 63318 FULL RESULT: EXAM: CHEST RADIOGRAPHY EXAM DATE: 10/14/2018 11:20 PM. CLINICAL HISTORY: Chest tightness and cough. COMPARISON: CHEST 2 VIEW PA/LAT 09/14/2015 5:26 PM. TECHNIQUE: 2 views. FINDINGS: Lungs/Pleura: No alveolar consolidation or pleural effusion seen. No pneumothorax. Mediastinum: Heart and mediastinal contours are unremarkable. Other: None. IMPRESSION: 1. No acute abnormality seen in the chest. RADIA
[2018-10-15 01:09] VITALS: BP 111/83
== END 2018-10-15 01:21 | disposition home or self-care (01) ==
LOC: EDUNIT# → ED 22:21
DX: R07.89 Other chest pain (principal); F41.9 Anxiety disorder, unspecified; F32.9 Major depressive disorder, single episode, unspecified; I10 Essential (primary) hypertension
CPT/HCPCS: 36415; 71046; 80053; 83690; 84484; 85025; 93005; 96374; 99284; J2060

== ENCOUNTER 2019-12-15 14:23 | Outpatient (CLI) | payer OTHER | END 2019-12-15 14:24 | disposition home or self-care (01) | LOC: EMS 14:23 | PROVIDERS: ATTEND Surgery | DX: R55 Syncope and collapse (principal) | CPT/HCPCS: A0425; A0427 ==

== ENCOUNTER 2019-12-15 14:48 | Emergency (ER) | payer OTHER ==
--- NOTE | 2019-12-15 15:11 | ED Physician Documentation ---
History of Present Illness - Stated complaint Stated Complaint: AMS - Chief complaint Chief Complaint: MHE - History obtained from History obtained from: Patient, Family, EMS - History of Present Illness Timing: Today Pain level max: 0 Pain level now: 0 - Additonal information Additional information: Per EMS, the called 911 because he has a history of conversion disorder and "catatonia". They state that the spell today is lasting longer than it has in the past. No injuries. No changes to his medications. He is on lithium at home. Nothing makes it better or worse. No trauma. No fevers. No recent illness. Review of Systems Ten Systems: 10 systems reviewed and negative Constitutional: denies: Fever, Chills Nose: denies: Rhinorrhea / runny nose, Congestion Respiratory: denies: Dyspnea GI: denies: Abdominal Pain, Nausea, Vomiting, Diarrhea Skin: denies: Rash Musculoskeletal: denies: Neck pain, Back pain Neurologic: denies: Headache PD PAST MEDICAL HISTORY - Past Medical History Past Medical History: Yes Cardiovascular: Hypertension, Atrial fibrillation, Other Respiratory: Sleep apnea, CPAP use Neuro: None Endocrine/Autoimmune: None GI: None : Kidney stones HEENT: None Psych: Depression, Anxiety, Other Musculoskeletal: None Derm: None - Past Surgical History Past Surgical History: Yes General: Appendectomy HEENT: Tonsil/Adenoidectomy - Present Medications Home Medications: Ambulatory Orders Medication Instructions Recorded Confirmed Duloxetine HCl [Cymbalta] 60 mg BID 05/30/17 05/30/17 Pantoprazole [Protonix] 60 mg PO DAILY 05/30/17 05/30/17 atenoloL [Atenolol] 50 mg PO DAILY 05/30/17 05/30/17 traZODone [Desyrel] 50 mg QPM 05/30/17 05/30/17 - Allergies Allergies/Adverse Reactions: Allergies Allergy/AdvReac Type Severity Reaction Status Date / Time No Known Drug Allergies Allergy Verified 12/15/19 15:05 - Social History Does the pt smoke?: No Smoking Status: Never smoker Does the pt drink ETOH?: No Does the pt have substance abuse?: No - Immunizations Immunizations are current?: Yes - POLST Patient has POLST: No PD ED PE NORMAL - Vitals Vital signs reviewed: Yes - General General: No acute distress, Other (Alert, eyes open, does respond to painful stimuli) - HEENT HEENT: Moist mucous membranes - Neck Neck: Supple, no meningeal sign - Cardiac Cardiac: RRR, Strong equal pulses - Respiratory Respiratory: No respiratory distress, Clear bilaterally - Abdomen Abdomen: Soft, Non tender, Non distended - Derm Derm: Warm and dry - Extremities Extremities: No edema - Neuro Eye Opening: Spontaneous Motor: Obeys Commands Verbal: None GCS Score: 11 - Psych Psych: Normal mood, Normal affect Results - Vitals Vitals: Vital Signs - 24 hr 12/15/19 12/15/19 12/15/19 14:55 15:03 16:50 Temperature 36.9 C 36.9 C Heart Rate 72 72 70 Respiratory 21 21 21 Rate Blood Pressure 114/73 114/73 129/85 H O2 Saturation 94 94 97 Oxygen O2 Source Room air - Labs Labs: Laboratory Tests 12/15/19 12/15/19 12/15/19 15:17 15:17 15:17 WBC RBC Hgb Hct MCV MCH MCHC RDW Plt Count MPV Neut # (Auto) Lymph # (Auto) [place] # (Auto) Eos # (Auto) Baso # (Auto) Absolute Nucleated RBC Nucleated RBC % Sodium 136 Potassium 3.6 Chloride 103 Carbon Dioxide 24 Anion Gap 9.0 BUN 10 Creatinine 0.8 Estimated GFR (MDRD) 106 Glucose 110 H Calcium 8.6 Total Bilirubin 0.4 AST 54 H ALT 89 H Alkaline Phosphatase 86 Total Protein 6.6 L Albumin 4.1 Globulin 2.5 Albumin/Globulin Ratio 1.6 Lipase 23 TSH 1.29 Last Dose Date Not Reportable Last Dose Time Not Reportable Salicylates < 6.0 Acetaminophen < 10 L [place] 0.47 Ethyl Alcohol < 5.0 12/15/19 15:54 WBC 5.9 RBC 4.74 Hgb 14.7 Hct 42.9 MCV 90.5 MCH 31.0 MCHC 34.3 RDW 13.6 Plt Count 275 MPV 10.0 Neut # (Auto) 2.7 Lymph # (Auto) 2.3 [place] # (Auto) 0.6 Eos # (Auto) 0.2 Baso # (Auto) 0.0 Absolute Nucleated RBC 0.00 Nucleated RBC % 0.0 Sodium Potassium Chloride Carbon Dioxide Anion Gap BUN Creatinine Estimated GFR (MDRD) Glucose Calcium Total Bilirubin AST ALT Alkaline Phosphatase Total Protein Albumin Globulin Albumin/Globulin Ratio Lipase TSH Last Dose Date Last Dose Time Salicylates Acetaminophen [place] Ethyl Alcohol - Rads (name of study) Head CT Radiology: Prelim report reviewed, EMP read contemporaneously, See rad report (No acute intracranial abnormality) PD MEDICAL DECISION MAKING - ED course Complexity details: reviewed results, re-evaluated patient, considered yuan yani, d/w patient, d/w family ED course: Unclear etiology of the patient's symptoms. Appears consistent with his prior history of conversion disorder. He states he was under stress earlier today. He slowly returned to his normal baseline in the emergency department. No seizure-like activity. Patient and are comfortable going home at this time. Patient counseled regarding signs and symptoms for which I believe and urgent re-evaluation would be necessary. Patient with good understanding of and agreement to plan and is comfortable going home at this time This document was made in part using voice recognition software. While efforts are made to proofread this document, sound alike and grammatical errors may occur. Departure - Departure Disposition: 01 Home, Self Care Clinical Impression: Conversion disorder Condition: Good Instructions: ED Conversion Disdr Conversion Reac Follow-Up: your,doctor in 1 week [Other] Comments: Follow-up with your doctor for further care. Return if you worsen. Discharge Date/Time: 12/15/19 16:50
[2019-12-15] MEDS ORDERED: SODIUM CHLORIDE 0.9% 1,000 ML IV STA (15:29)
[2019-12-15 15:38] LABS: ACETAMINOPHEN < 10 ug/mL (10-30); ALBUMIN 4.1 g/dL (3.2-5.5); ALBUMIN/GLOBULIN RATIO 1.6 (1.0-2.2); ALKALINE PHOSPHATASE 86 IU/L (42-121); ALT ALANINE AMINOTRANSFERASE 89 IU/L (10-60); AST ASPARTATE AMINOTRANSFERASE 54 IU/L (10-42); BILIRUBIN,TOTAL 0.4 mg/dL (0.2-1.0); BUN - BLOOD UREA NITROGEN 10 mg/dL (6-20); CALCIUM 8.6 mg/dL (8.5-10.3); CARBON DIOXIDE - CO2 24 mmol/L (21-32); CHLORIDE 103 mmol/L (101-111); CREATININE 0.8 mg/dL (0.6-1.2); GLUCOSE 110 mg/dL (70-100); LIPASE 23 U/L (22-51); SALICYLATE < 6.0 mg/dL; SODIUM 136 mmol/L (135-145); TOTAL PROTEIN 6.6 g/dL (6.7-8.2)
[2019-12-15 15:58] LABS: BASOPHILS % (AUTO) 0.7 %; EOSINOPHILS # (AUTO) 0.2 10^3/uL (0.0-0.7); EOSINOPHILS % (AUTO) 3.9 %; HGB - HEMOGLOBIN 14.7 g/dL (14.0-18.0); LYMPHOCYTES # (AUTO) 2.3 10^3/uL (1.5-3.5); LYMPHOCYTES % (AUTO) 38.5 %; MEAN CORPUSCULAR HGB CONC 34.3 g/dL (32.0-36.0); MEAN CORPUSCULAR VOLUME 90.5 fL (80.0-94.0); MONOCYTES # (AUTO) 0.6 10^3/uL (0.0-1.0); MONOCYTES % (AUTO) 9.4 %; NEUTROPHILS # (AUTO) 2.7 10^3/uL (1.5-6.6); NEUTROPHILS % (AUTO) 46.8 %; PLT - PLATELET COUNT 275 10^3/uL (130-450); RED BLOOD COUNT 4.74 10^6/uL (4.70-6.10); RED CELL DISTRIBUTION WIDTH 13.6 % (12.0-15.0); WHITE BLOOD COUNT 5.9 x10^3/uL (4.8-10.8)
[2019-12-15 15:58] LABS: LITHIUM 0.47 mmol/L
--- NOTE | 2019-12-15 16:12 | CT Report ---
PROCEDURE: HEAD WO INDICATIONS: aloc TECHNIQUE: Noncontrast 4.5 mm thick angled axial sections acquired from the foramen magnum to the vertex. For r adiation dose reduction, the following was used: automated exposure control, adjustment of mA and/or kV according to patient size. COMPARISON: CT head 09/28/2017, 07/27/2016 FINDINGS: Image quality: Excellent. CSF spaces: Basal cisterns are patent. No extra-axial fluid collections. Ventricles are normal in size and shape. Brain: No midline shift. No intracranial masses or hemorrhage. [place]-white matter interface is norm al. Skull and face: Calvarium and visualized facial bones are intact, without suspicious lesions. Sinuses: Visualized sinuses and mastoids are clear. IMPRESSION: 1. No acute intracranial process. Reviewed by: Anuradha Ochoa MD on 12/15/2019 4:10 PM PDT Approved by: Anuradha Ochoa MD on 12/15/2019 4:10 PM PDT Station ID: [id number]
[2019-12-15 16:51] VITALS: BP 129/85
== END 2019-12-15 16:50 | disposition home or self-care (01) ==
LOC: ED 14:48
DX: F44.4 Conversion disorder with motor symptom or deficit (principal); I10 Essential (primary) hypertension
CPT/HCPCS: 36415; 70450; 80053; 80178; 80307; 80320; 80329; 83690; 84443; 85025; 99284

== ENCOUNTER 2023-05-18 08:42 | Outpatient (CLI) | payer MEDICARE, OTHER ==
--- NOTE | 2023-05-18 09:07 | Sleep Patient Instructions ---
Sleep Center Visit Summary - Patient Visit Information Reason for Visit: Initial consultation - Patient Instructions Additional Instructions: You will be completing a sleep study, either an in-lab polysomnography (PSG) or home sleep study (HST). You will follow-up in the sleep care office after the sleep study is completed to hear the results and talk about therapy, if needed. You may continue your CPAP therapy with pressure set at 8 cmH2O. You will be called by our office staff to schedule this appointment, but you may contact us with any questions. - Clinic Information Contact: [facility] [address] [place] [id number] [email or web address] T: [phone]
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
[2023-05-18 09:12] VITALS: BP 126/68; O2SAT 97
== END 2023-05-18 08:43 | disposition home or self-care (01) ==
LOC: SC 08:42
PROVIDERS: ATTEND Nurse Practitioner Family
DX: G47.33 Obstructive sleep apnea (adult) (pediatric) (principal); F32.A Depression, unspecified; E66.9 Obesity, unspecified; Z68.34 Body mass index [BMI] 34.0-34.9, adult; Z87.891 Personal history of nicotine dependence
CPT/HCPCS: 99203; G0463; 99212

== ENCOUNTER 2023-06-13 20:32 | Outpatient (CLI) | payer MEDICARE, OTHER | END 2023-06-13 20:33 | disposition home or self-care (01) | LOC: SC 20:32 | PROVIDERS: ATTEND Nurse Practitioner Family | DX: G47.33 Obstructive sleep apnea (adult) (pediatric) (principal); E66.9 Obesity, unspecified; Z68.34 Body mass index [BMI] 34.0-34.9, adult | CPT/HCPCS: 95810 ==

== ENCOUNTER 2023-06-22 09:23 | Outpatient (CLI) | payer MEDICARE, OTHER ==
--- NOTE | 2023-06-22 09:56 | Sleep Patient Instructions ---
Sleep Center Visit Summary - Patient Visit Information Reason for Visit: Sleep study followup - Patient Instructions Instructions Attached: CPAP Additional Instructions: You are being started on CPAP therapy with pressure setting at 4-15 cmH2O. You will need to call the sleep care office to set up your follow up once you have your APAP machine and we will schedule a visit to check compliance and response to therapy at that time. You may call the office with any concerns about pressure feeling too low or too much for adjustment, if needed. You should contact DME supplier for any questions or concerns about mask or equipment. Please call office to schedule a follow up appointment in the sleep care office one month after obtaining new device. - Clinic Information Contact: [facility] [address] [place] [address] [email or web address] T: [phone]
--- NOTE | 2023-06-22 09:59 | SLEEP CARE CONSULTATION ---
Information from patient questionnaire entered by Rin Larios. I have reviewed and concur with the information entered by Rin Larios. This document represents the service I personally performed and the decisions made by me, Donna Batres ARNP. History of Present Illness Service Date and Time: 06/22/2023922 Initial [place] Sleepiness Scale score: 15 (05/18/23) Current [place] Sleepiness Scale score: 15 (06/22/23) Additional HPI information: KATRINA SPANGLER returns for follow up and results of the recently performed polysomnography. The sleep study showed moderate obstructive sleep apnea with an average AHI of 16 and shante oxygen saturation of 82%. He had mild PLMs not contributing to sleep fragmentation. I explained the pathophysiology behind obstructive sleep apnea. We then spent quite a bit of time discussing different treatment options. For mild obstructive sleep apnea, surgery and oral appliance are alternatives to nasal CPAP therapy but in moderate or severe cases, nasal CPAP is the most effective and reliable treatment. Because apnea is primarily in supine position, then positional management therapy could be effective. Methods discussed such as positioning with pillows, using a T-shirt with tennis balls in the back or commercial products that have a pillow format on back to prevent supine sleep. I reviewed the impact of weight changes on sleep apnea and strongly recommended losing weight. After some discussion, the patient opted to go with the nasal CPAP therapy. Nasal autoCPAP set at 6-10 cmH20 will be ordered with rationale explained. A manual titration study will be ordered if unable to find optimal pressure with office adjustments. I explained how CPAP machine works and what to expect when using the machine. Using CPAP every night in order to get used to it was emphasized. Patient advised to put CPAP mask on before getting into bed so as not to fall asleep without CPAP. To assist acclimation to CPAP use, it could also be used for a short time during day while reading or watching TV. The patient was instructed to call the CPAP supplier to discuss any mechanical problem that may occur. If the mask given is uncomfortable or is difficult to keep on through the night even with adjustment, contact the CPAP supplier as many will replace with another mask style if notified before 30 days. If snoring or perceives is not getting enough air or too much air from the machine, notify this office. Patient does not drink alcohol. Patient was cautioned about risks of drowsy driving until sleepiness symptoms resolve. Sleep Study - Results Type of Sleep Study: Polysomnography (COMPLETED 06/13/23) Year and Where: NOVEMBER 2018 [facility] Polysomnography/Home Sleep Study results: IMPRESSION: The quality of the study is good. The patient had reduced sleep efficiency due to prolonged awakenings in the second half of the night. The sleep architecture was abnormal for sleep fragmentation and reduced amount of time spent in REM and slow wave sleep (N3). Respiratory monitoring showed moderate obstructive sleep apnea-hypopnea (AHI = 16.0) associated with frequent arousals, oxyhemoglobin desaturation and mild hypoxia (shante oxygen saturation of 82%). The respiratory events occurred almost exclusively during supine sleep (supine AHI = 40.2; non-supine = 1.29). Snore was moderate to loud in intensity. There was mild periodic leg movement of sleep, not contributing to the sleep fragmentation. Cardiac rhythm was normal sinus rhythm without significant arrhythmia. No abnormal behavior (parasomnia) observed during the night. Allergies and Home Medications Known drug allergies: No Drug allergies reviewed: Yes Home medication list reviewed: Yes (no changes) Allergy and home medication list: Allergies No Known Drug Allergies Allergy (Verified 06/20/23 08:32) Review of Systems Review of systems same as previous: No (PACEMAKER 05/27/23 for 3rd degree heart block) Physical Exam Vital signs obtained and entered by: RIN Michel MA Blood Pressure: 154/109 (RIGHT ARM) Cuff size: regular Heart Rate: 74 O2 Saturation: 98 Height: 5 ft 9.75 in Weight: 246 lb Body Mass Index: 35.5 BMI Classification: Obese Impression and Plan 1. Obstructive Sleep Apnea-Hypopnea Syndrome, moderate, with lowest oxygen saturation of 82%. Obviously this is the cause of the patients symptoms of unrefreshed sleep, and excessive daytime sleepiness. Positive pressure therapy could benefit anxiety, depression and gastric reflux. Patient with new diagnosis of 3rd degree heart block with pacemaker insertion in 05/2023. As mentioned above, the patient will be started on nasal autoCPAP therapy with pressure set at 6-10 cmH2O. Compliance guidelines also reviewed. A copy of compliance guidelines will be given for reference at check out. Because the apnea is more severe supine, I instructed to avoid sleeping supine using pillow positioning until able to start CPAP use. 2. Hypoxemia, mild, with a shante oxygen saturation of 82% and 4.8 minutes spent under 90%. The baseline oxygen saturation was normal with an average oxygen saturation of 93%. 3. Obesity, unspecified. Currently patients BMI is 35.5. Obesity increases the risk of apnea, CPAP pressure requirements and overall health risks especially cardiovascular and diabetes. Thus patient is advised to lose weight. * Nasal auto CPAP therapy, pressure at 6-10 cmH2O. * Attempt to lose weight. * Avoid supine sleep until using CPAP. * The patient is again cautioned about driving until sleepiness completely resolves. * Return one month after CPAP obtained. I will assess response to therapy and compliance at that time. Counseling Topics: Weight loss health impact Prescriptions: Auto CPAP Follow up with Sleep Care in: other (compliance visit) Visit Type: In Office Time Spent with Patient (minutes): 24 Provider Statement: I spent 100% of the Face to Face Visit with the patient with greater than 50% spent counseling the patient and coordination of care.
[2023-06-22 10:07] VITALS: BP 154/109; O2SAT 98
== END 2023-06-22 09:24 | disposition home or self-care (01) ==
LOC: SC 09:23
PROVIDERS: ATTEND Nurse Practitioner Family
DX: G47.33 Obstructive sleep apnea (adult) (pediatric) (principal); R09.02 Hypoxemia; E66.9 Obesity, unspecified; Z68.35 Body mass index [BMI] 35.0-35.9, adult
CPT/HCPCS: 99213; G0463; 99212

== ENCOUNTER 2023-10-11 09:00 | Outpatient (CLI) | payer MEDICARE, OTHER ==
--- NOTE | 2023-10-12 08:39 | XRAY Report ---
PROCEDURE: Hip w/Pelvis 2-3V RT INDICATIONS: HIP PAIN, RIGHT TECHNIQUE: 2 views of the hip were acquired. COMPARISON: None. FINDINGS: Bones: No fractures or dislocations. No suspicious bony lesions. Mild osteoarthritic changes in hip s and sacrum iliac joints bilaterally. Soft tissues: No suspicious soft tissue calcifications or masses. Surgical clips in the right lower quadrant. IMPRESSION: 1. No acute bony abnormality. 2. Mild osteoarthritis. 3. If there is high clinical suspicion for internal derangement such as labral or ligamentous injurie s, consider MRI. Reviewed by: Dhruv Taylor MD on 10/12/2023 8:38 AM PDT Approved by: Dhruv Taylor MD on 10/12/2023 8:38 AM PDT Station ID: [id number]
== END 2023-10-11 09:15 | disposition home or self-care (01) ==
LOC: DI.N 09:00
PROVIDERS: ATTEND Physician Assistant Medical
DX: M16.11 Unilateral primary osteoarthritis, right hip (principal)

== ENCOUNTER 2023-10-26 10:45 | Outpatient (CLI) | payer MEDICARE, OTHER ==
--- NOTE | 2023-10-26 17:06 | XRAY Report ---
PROCEDURE: Ribs w/PA Chest 3+V RT INDICATIONS: CONTUSION OF RIGHT FRONT WALL OF THORAX TECHNIQUE: 2 views of the ribs were acquired, along with a single view chest. COMPARISON: None. FINDINGS: Surgical changes and devices: None. Bones and chest wall: No fractures or dislocations. No suspicious bony lesions. Overlying soft tis sues appear unremarkable. Lungs and pleura: No pleural effusions or pneumothorax. Lungs appear clear. Mediastinum: Mediastinal contours appear normal. Heart size is normal. IMPRESSION: No displaced rib fracture or pneumothorax. Reviewed by: Belen Colón MD on 10/26/2023 5:05 PM PDT Approved by: Belen Colón MD on 10/26/2023 5:05 PM PDT Station ID: [id number]
== END 2023-10-26 11:00 | disposition home or self-care (01) ==
LOC: DI.N 10:45
PROVIDERS: ATTEND Physician Assistant Medical
DX: S20.211A Contusion of right front wall of thorax, initial encounter (principal)

== ENCOUNTER 2023-12-08 12:52 | Outpatient (CLI) | payer MEDICARE, OTHER ==
--- NOTE | 2023-12-08 13:27 | Sleep Patient Instructions ---
Sleep Center Visit Summary - Patient Visit Information Reason for Visit: First compliance follow-up - Patient Instructions Additional Instructions: You were here for follow up of CPAP therapy. You will be continued on CPAP therapy with pressure at 6-10 cmH2O. I will send an updated supply prescription to [facility] for your supplies. You should follow up with sleep care in 12 months. You may contact us sooner for any questions or concerns. - Clinic Information Contact: [facility] [address] [place] [address] [email or web address] T: [phone]
--- NOTE | 2023-12-08 13:30 | SLEEP CARE CONSULTATION ---
Information from patient questionnaire entered by Ha Larios. I have reviewed and concur with the information entered by Ha Larios. This document represents the service I personally performed and the decisions made by me, Donna Batres ARNP. History of Present Illness Service Date and Time: 12/08/2023 1252 Previous diagnosis: Moderate, Obstructive Sleep Apnea-Hypopnea Syndrome AHI: 16 (on 06/13/2023) Reason for follow up: first compliance (last seen 06/22/23) Equipment type: CPAP (Resmed Airsense 11, s/u 11/29/2018) Equipment obtained from: Other ([facility]; getting supplies) Mask style: Full face Mask brand: [employer] ([employer]itera) Backup mask available: No Last cushion change: 2 weeks Year and Where: NOVEMBER 2018 [facility] Type of Sleep Study: Polysomnography (COMPLETED 06/13/23) HPI additional information: KATRINA SPANGLER was diagnosed to have moderate, AHI 16, obstructive sleep apnea- hypopnea syndrome and returned today for CPAP therapy first compliance follow- up. Sleep Study - Results Type of Sleep Study: Polysomnography (COMPLETED 06/13/23) Year and Where: NOVEMBER 2018 [facility] CPAP Compliance Data - Data Reviewed with Patient Average duration of nightly device use: 7 HRS 31 MINS Compliance rate %: 77 (07/04/23-11/30/23; 124/150 days used; 90% in last 30 days) Current pressure setting (cmH2O): 6-10 Average residual AHI: 4 Central apnea: 0.8 Obstructive apnea: 1.9 Hypopnea: 1.1 Average large leak: 10.2 L/min Subjective Missed days of use due to: reports: other (fell asleep without mask on) Patient concerns: denies: aerophagia, mask discomfort, air blowing in eyes, mask leak noise, condensation in mask/hose, nasal congestion, dry mouth, nose, throat, epistaxis Observed to snore while using device: No Current pressure setting perceived as: comfortable On therapy, patient: reports: sleeping better, awakening more refreshed, being more awake and alert during the day, more rested overall. denies: drowsiness while driving Initial [place] Sleepiness Scale score: 15 (05/18/23) Current [place] Sleepiness Scale score: 4 (12/08/23) Allergies and Home Medications Known drug allergies: No Drug allergies reviewed: Yes Home medication list reviewed: Yes (Auvelity) Allergy and home medication list: Allergies No Known Drug Allergies Allergy (Verified 12/06/23 09:22) Review of Systems Review of systems same as previous: Yes (NO CHANGE) Physical Exam Vital signs obtained and entered by: HA Michel MA Blood Pressure: 134/84 (LEFT ARM) Cuff size: regular Heart Rate: 65 O2 Saturation: 98 Height: 5 ft 9.75 in Weight: 223 lb Weight change since last visit: 23 lb loss Body Mass Index: 32.2 BMI Classification: Obese Impression and Plan 1. Obstructive Sleep Apnea-Hypopnea Syndrome, moderate, with good treatment compliance and good apnea control. On CPAP therapy, the patient has better sleep quality and is more rested overall. Patient returns for his compliance visit. He is compliant with using his CPAP and is satisfied with CPAP therapy. He is comfortable with his use and has significant improvement of his sleep apnea. He denies any significant issues with using the mask and CPAP. Patient's apnea severity and rationale for treatment to reduce apnea, improve sleep quality and reduce cardiovascular and cerebrovascular events was reviewed. I also reviewed the benefit of consistent device use of CPAP for cardiac disease, gastric reflux, depression/anxiety. 2. Obesity, unspecified. Currently patients BMI is 32.2. He has lost weight. Obesity increases the risk of apnea, CPAP pressure requirements and overall health risks especially cardiovascular and diabetes. Thus patient is advised to continue to try to lose weight. * Continue auto CPAP pressure at 6-10 cmH2O * Update supply prescription * Notify me if snoring with mask or feeling that the pressure is too much or too little * Attempt to lose weight * Call this office if any problems using CPAP * Return for follow up in 12 months, or sooner if concerns arise Continue with device pressure at (cmH2O): 6-10 Counseling Topics: Spare mask, Weight loss health impact Follow up with Sleep Care in: 1 year Visit Type: In Office Time Spent with Patient (minutes): 23 Provider Statement: I spent 100% of the Face to Face Visit with the patient with greater than 50% spent counseling the patient and coordination of care.
[2023-12-08 13:39] VITALS: BP 134/84; O2SAT 98
== END 2023-12-08 12:53 | disposition home or self-care (01) ==
LOC: SC 12:52
PROVIDERS: ATTEND Nurse Practitioner Family
DX: G47.33 Obstructive sleep apnea (adult) (pediatric) (principal); E66.9 Obesity, unspecified; Z68.32 Body mass index [BMI] 32.0-32.9, adult
CPT/HCPCS: 99213; G0463; 99212

== ENCOUNTER 2023-12-08 13:55 | Outpatient (CLI) | payer MEDICARE, OTHER ==
--- NOTE | 2023-12-08 23:40 | XRAY Report ---
PROCEDURE: Wrist 3+V RT INDICATIONS: WRIST PAIN, RIGHT TECHNIQUE: 3 views of the wrist were acquired. COMPARISON: None. FINDINGS: Bones: No fractures or dislocations. No suspicious bony lesions. Soft tissues: No suspicious soft tissue calcifications or masses. IMPRESSION: No acute bony abnormality. Reviewed by: Cortney Langford MD on 12/08/2023 11:38 PM PDT Approved by: Cortney Langford MD on 12/08/2023 11:38 PM PDT Station ID: [id number]
== END 2023-12-08 15:09 | disposition home or self-care (01) ==
LOC: DI.N 13:55
PROVIDERS: ATTEND Physician Assistant Medical
DX: M25.531 Pain in right wrist (principal); G47.33 Obstructive sleep apnea (adult) (pediatric); E66.9 Obesity, unspecified; Z68.32 Body mass index [BMI] 32.0-32.9, adult
CPT/HCPCS: 73110; 99213; G0463; 99212

== ENCOUNTER 2024-01-04 10:11 | Outpatient (CLI) | payer MEDICARE, OTHER ==
--- NOTE | 2024-01-04 22:15 | XRAY Report ---
PROCEDURE: Wrist 3+V RT INDICATIONS: RIGHT WRIST PAIN TECHNIQUE: 3 views of the wrist were acquired. COMPARISON: X-ray wrist 12/08/2023 FINDINGS: Bones: No fractures or dislocations. No suspicious bony lesions. Soft tissues: No suspicious soft tissue calcifications or masses. IMPRESSION: No visualized fracture. If concern persists, MRI is recommended. Reviewed by: Anuradha Ochoa MD on 01/04/2024 10:13 PM PDT Approved by: Anuradha Ochoa MD on 01/04/2024 10:13 PM PDT Station ID: [id number]
--- NOTE | 2024-01-04 22:15 | XRAY Report ---
PROCEDURE: Shoulder 2+V LT INDICATIONS: LEFT SHOULDER PAIN TECHNIQUE: 3 views of the shoulder were acquired. COMPARISON: None. FINDINGS: Bones: No fractures or dislocations. No suspicious bony lesions. Visualized ribs appear intact. Soft tissues: No suspicious soft tissue calcifications. The visualized lungs are within normal limi ts. Partially visualized pacemaker. IMPRESSION: No acute bony abnormality. Reviewed by: Anuradha Ochoa MD on 01/04/2024 10:14 PM PDT Approved by: Anuradha Ochoa MD on 01/04/2024 10:14 PM PDT Station ID: [id number]
== END 2024-01-04 10:12 | disposition home or self-care (01) ==
LOC: DI 10:11
PROVIDERS: ATTEND Family Medicine
DX: M25.531 Pain in right wrist (principal); M75.22 Bicipital tendinitis, left shoulder

== ENCOUNTER 2024-03-02 15:46 | Outpatient (CLI) | payer MEDICARE, OTHER ==
--- NOTE | 2024-03-02 16:25 | CT Report ---
PROCEDURE: Upper Extremity LT WO INDICATIONS: L SHOULDER PAIN TECHNIQUE: Noncontrast 2 mm axial sections were acquired through the elbow joint, with coronal and sagittal refo rmats. For radiation dose reduction, the following was used: automated exposure control, adjustment of mA and/or kV according to patient size. COMPARISON: Left shoulder radiograph dated 01/04/2024. FINDINGS: Image quality: Excellent. Bones: There is mild acromioclavicular and glenohumeral joint osteoarthritis with joint space narrow ing and subchondral sclerosis. There is no fracture or dislocation. No suspicious bony lesions. The v isualized portion of left upper to mid ribs are intact. The included portion of sternum and left ster noclavicular joint are within normal limits. Soft tissues: Examination of rotator cuff tendons shows no gross full-thickness rotator cuff tendon rupture. Sagittal images shows no significant rotator cuff muscle atrophy. No abnormal soft tissue ca lcifications. No significant joint effusion or calcified intra-articular loose bodies. There is no axillary lymphadenopathy by size criteria. Left chest wall pacemaker is seen. The visuali zed left lung field show no pleural effusion or pneumothorax. IMPRESSION: 1. Mild left acromioclavicular joint and glenohumeral joint osteoarthritis. No shoulder fracture or d islocation. No suspicious bony lesions. 2. No full-thickness rotator cuff tendon rupture. No significant rotator cuff muscle atrophy. 3. Left chest wall pacemaker in place. No soft tissue mass or drainable fluid collection. No signific ant joint effusion. No abnormal soft tissue calcifications. Reviewed by: Marlo Crenshaw MD on 03/02/2024 4:24 PM PDT Approved by: Marlo Crenshaw MD on 03/02/2024 4:24 PM PDT Station ID: [id number]
== END 2024-03-02 15:47 | disposition home or self-care (01) ==
LOC: DI 15:46
PROVIDERS: ATTEND Family Medicine
DX: M19.012 Primary osteoarthritis, left shoulder (principal); Z95.0 Presence of cardiac pacemaker; S46.002D Unspecified injury of muscle(s) and tendon(s) of the rotator cuff of left shoulder, subsequent encounter